=== PATIENT | male | born 1995 | race African-American/Black ===

== ENCOUNTER 2025-01-14 19:48 | Emergency (ER) | payer OTHER ==
[2025-01-14 19:54] VITALS: BP 119/75; PULSE 65; RESP 16; TEMP 98.2; BMI 23.7
[2025-01-14] MEDS ORDERED: KETOROLAC TROMETHAMINE 60 MG/2 ML VIAL ONE (20:18)
[2025-01-14] MEDS: KETOROLAC TROMETHAMINE 60 MG/2 ML VIAL IM ONE (20:19)
== END 2025-01-14 20:25 | disposition home or self-care (01) ==
LOC: FER 19:48
PROC: 3E0233Z Introduction of Anti-inflammatory into Muscle, Percutaneous Approach (ICD-10-PCS; principal; 2025-01-14)
DX: M79.604 Pain in right leg (principal)
CPT/HCPCS: 99284-25